=== PATIENT | female | born 1995 | race Two or more races ===

== ENCOUNTER 2024-11-19 09:17 | Outpatient (CLI) | payer OTHER | END 2024-11-19 09:18 | disposition home or self-care (01) | LOC: MRI 09:17 | PROVIDERS: ATTEND General Practice | DX: M79.604 Pain in right leg (principal); M79.661 Pain in right lower leg; M54.50 Low back pain, unspecified; M54.31 Sciatica, right side; G89.29 Other chronic pain | CPT/HCPCS: 72148 ==

== ENCOUNTER 2025-06-11 11:22 | Emergency (ER) | payer OTHER ==
[~2025-06-11] VITALS: Ht 165.1 cm; Wt 99.8 kg
[~2025-06-11 11:22] MED LIST: MEDROLPACK PO
[2025-06-11 11:59] VITALS: O2SAT 100
[2025-06-11] MEDS ORDERED: DEXAMETHASONE SODIUM PHOSPHATE 4 MG/ML VIAL IM ONE (13:00)
[2025-06-11] MEDS ORDERED: ORPHENADRINE CITRATE 30 MG/ML AMPUL IM ONE (13:00)
[2025-06-11] MEDS ORDERED: KETOROLAC TROMETHAMINE 30 MG VIAL IM ONE (13:00)
[2025-06-11] MEDS ORDERED: MORPHINE SULFATE 4 MG/ML VIAL IV ONE (16:30)
[2025-06-11 17:43] VITALS: BP 110/63
[2025-06-11] MEDS ORDERED: MEDROLPACK PO (18:21)
[2025-06-11] MEDS ORDERED: NORFLEX100MG PO (18:21)
[2025-06-11] MEDS ORDERED: TRAMADOL HCL50 MG PO (18:21)
== END 2025-06-11 18:37 | disposition home or self-care (01) ==
LOC: ER 11:22
DX: M54.14 Radiculopathy, thoracic region (principal)